=== PATIENT | male | born 1980 | race Caucasian/White ===

== ENCOUNTER 2017-02-22 17:44 | Emergency (ER) | payer MEDICAID, OTHER ==
[~2017-02-22] VITALS: Ht 170.2 cm; Wt 105.2 kg
[2017-02-22 17:45] VITALS: BP 117/55
[2017-02-22] MEDS ORDERED: ACETAMINOPHEN 325MG TABLET PO ONE (18:30)
== END 2017-02-22 19:20 | disposition home or self-care (01) ==
LOC: ER 17:44
DX: J06.9 Acute upper respiratory infection, unspecified (principal); H66.91 Otitis media, unspecified, right ear; F17.210 Nicotine dependence, cigarettes, uncomplicated
CPT/HCPCS: 99283

== ENCOUNTER 2017-04-21 19:00 | Emergency (ER) | payer MEDICAID ==
[~2017-04-21] VITALS: Ht 170.2 cm; Wt 62.0 kg
[2017-04-21] MEDS ORDERED: ACETAMINOPHEN 500MG TABLET PO ONE (23:00)
[2017-04-21] MEDS ORDERED: TETANUS, DIPHTHERIA, PERTUSSIS VAC/PF 0.5ML (>7YR OLD) IM ONE (23:00)
[2017-04-21] MEDS ORDERED: IBUPROFEN 600MG TABLET PO ONE (23:00)
[2017-04-21 23:48] VITALS: BP 121/67
== END 2017-04-21 23:51 | disposition home or self-care (01) ==
LOC: ER 20:24
DX: S20.211A Contusion of right front wall of thorax, initial encounter (principal); S60.221A Contusion of right hand, initial encounter; F17.200 Nicotine dependence, unspecified, uncomplicated; V00.831A Fall from motorized mobility scooter, initial encounter; Y93.89 Activity, other specified; Y92.89 Other specified places as the place of occurrence of the external cause; Y99.8 Other external cause status
CPT/HCPCS: 73130; 90471; 99284

== ENCOUNTER 2017-05-03 16:39 | Emergency (ER) | payer MEDICAID ==
[~2017-05-03] VITALS: Ht 170.2 cm; Wt 107.0 kg
[2017-05-04 01:46] VITALS: BP 116/61
== END 2017-05-04 01:51 | disposition home or self-care (01) ==
LOC: ER 17:54
DX: G51.0 Bell's palsy (principal); F17.200 Nicotine dependence, unspecified, uncomplicated
CPT/HCPCS: 99283

== ENCOUNTER 2017-05-09 12:48 | Emergency (ER) | payer MEDICAID ==
[~2017-05-09] VITALS: Ht 170.2 cm; Wt 107.0 kg
[2017-05-09 13:10] VITALS: BP 119/61
[2017-05-09] MEDS ORDERED: P20 PO (13:14)
[2017-05-09] MEDS ORDERED: VALA500T PO (13:14)
== END 2017-05-09 17:56 | disposition home or self-care (01) ==
LOC: ER 14:54
DX: G51.0 Bell's palsy (principal); F17.200 Nicotine dependence, unspecified, uncomplicated
CPT/HCPCS: 99283

== ENCOUNTER 2018-03-28 20:03 | Emergency (ER) | payer MEDICAID ==
[~2018-03-28] VITALS: Ht 170.2 cm; Wt 104.0 kg
[~2018-03-28 20:03] MED LIST: P20 PO; VALA500T PO
[2018-03-29 02:23] LABS: CLARITY URINE CLEAR (CLEAR); COLOR URINE YELLOW (YELLOW); KETONES URINE NEGATIVE (NEGATIVE); LEUKOCYTE ESTERASE URINE TRACE (NEGATIVE); NITRITE URINE NEGATIVE (NEGATIVE); OCCULT BLOOD URINE NEGATIVE (NEGATIVE); PROTEIN URINE NEGATIVE (NEGATIVE); SPECIFIC GRAVITY URINE 1.013 (1.005-1.030)
[2018-03-29 05:10] VITALS: BP 105/62
== END 2018-03-29 05:00 | disposition home or self-care (01) ==
LOC: ER 20:03
DX: R10.11 Right upper quadrant pain (principal); R05 Cough; F17.200 Nicotine dependence, unspecified, uncomplicated; Z71.6 Tobacco abuse counseling
CPT/HCPCS: 71045; 99284; 99406